=== PATIENT | male | born 1975 | race Caucasian/White ===

== ENCOUNTER 2017-03-05 03:27 | Inpatient (IN) | payer BC ==
[~2017-03-05] VITALS: Ht 172.7 cm; Wt 96.9 kg
[2017-03-05 04:44] LABS: CALCIUM 8.6 mg/dL (8.5-10.1); CARBON DIOXIDE 31.7 mmol/L (21-32); CHLORIDE SERUM 104 mmol/L (98-107); CREATININE SERUM 1.2 mg/dL (0.7-1.3); GFR1 > 60 mL/min; GLUCOSE SERUM 123 mg/dL (74-106); POTASSIUM SERUM 3.6 mmol/L (3.5-5.1); SODIUM SERUM 141 mmol/L (136-145)
[2017-03-05 04:50] LABS: ALBUMIN 3.8 g/dL (3.4-5.0); ALKALINE PHOSPHATASE 112 U/L (46-116); ALT/SGPT 67 U/L (16-63); AST/SGOT 41 U/L (15-37); BILIRUBIN TOTAL 0.8 mg/dL (0.20-1.00); TOTAL PROTEIN, SERUM 8.2 g/dL (6.4-8.2)
[2017-03-05 04:53] LABS: BASOPHIL % 0.6 % (0-2); PLATELET COUNT 212 x10^3mcL (130-400); RED CELL DISTRIBUTION WIDTH 13.4 % (11.5-14.5)
[2017-03-05 05:14] LABS: microscopic required? NO
[2017-03-05 05:40] LABS: CHOLESTEROL/HDL RATIO 4.7; MAGNESIUM 2.4 mg/dL (1.8-2.4); PHOSPHOROUS 3.2 mg/dL (2.5-4.9)
[2017-03-05 05:56] LABS: UA SPECIFIC GRAVITY 1.015 (1.005-1.035); urine erythrocyte NEGATIVE (NEGATIVE)
[2017-03-05 06:01] VITALS: BP 189/119
[2017-03-05 06:04] LABS: FREE T4 1.15 ng/dL (0.76-1.46); T4(THYROXINE) 11.3 ug/dL (4.7-13.3)
[2017-03-05 06:25] VITALS: BP 162/107
[2017-03-05 06:27] LABS: AMPHETAMINE QUAL UR NONE DETECTED (NEG <=1000)
[2017-03-05 07:15] LABS: T3 TOTAL 1.4 ng/mL
[2017-03-05 07:55] LABS: AMYLASE 71 U/L (25-115); LIPASE 157 IU/L (73-393)
[2017-03-05 09:49] VITALS: BP 152/110
[2017-03-05 11:47] VITALS: Ht 172.7 cm; Wt 96.9 kg
[2017-03-05 13:26] VITALS: BP 156/110
[2017-03-05] MEDS ORDERED: ZES20 PO (15:46)
[2017-03-05] MEDS ORDERED: METOPROLOL TART25 M1 PO (15:46)
[2017-03-05 15:59] VITALS: BP 156/110
== END 2017-03-05 16:45 | disposition short-term general hospital (02) | DRG 287 ==
LOC: ED 03:27 → DU 05:09
PROVIDERS: Emergency Medicine; Internal Medicine Interventional Cardiology; ADMIT Family Medicine
PROC: B2111ZZ Fluoroscopy of Multiple Coronary Arteries using Low Osmolar Contrast (ICD-10-PCS; 2017-03-05)
PROC: 4A023N7 Measurement of Cardiac Sampling and Pressure, Left Heart, Percutaneous Approach (ICD-10-PCS; principal; 2017-03-05 14:30)
DX: I24.9 Acute ischemic heart disease, unspecified (principal); I16.1 Hypertensive emergency; E78.2 Mixed hyperlipidemia; R74.0 Nonspecific elevation of levels of transaminase and lactic acid dehydrogenase [LDH]; E66.9 Obesity, unspecified; Z68.32 Body mass index [BMI] 32.0-32.9, adult; Z82.49 Family history of ischemic heart disease and other diseases of the circulatory system; Z83.3 Family history of diabetes mellitus
CPT/HCPCS: CLHCL; 83880; 84439; C1769; C1887; C1894; G0480; J1644; J2001; J2250; J3010; J3490; J7030; J7040; J7050; Q0092; Q9967